=== PATIENT | female | born 1945 | race Caucasian/White ===

== ENCOUNTER → 2016-09-30 | Outpatient (CLI) | payer OTHER | LOC: FIMAGING 07:55 | PROVIDERS: ATTEND Internal Medicine | DX: Z12.31 Encounter for screening mammogram for malignant neoplasm of breast (principal); Z86.000 Personal history of in-situ neoplasm of breast | CPT/HCPCS: G0202 ==

== ENCOUNTER → 2017-10-06 | Outpatient (CLI) | payer OTHER | LOC: FIMAGING 10:25 | PROVIDERS: ATTEND Internal Medicine | DX: Z12.31 Encounter for screening mammogram for malignant neoplasm of breast (principal) ==

== ENCOUNTER 2018-02-20 12:25 | Emergency (ER) | payer OTHER ==
[2018-02-20] MEDS ORDERED: NS 1,000 ML IV ONE ×2 (12:40)
--- NOTE | 2018-02-20 12:40 | EDPHY ---
H & P Stated Complaint: irregular hr post colonostomy Time Seen by Provider: 02/20/18 12:40 HPI/ROS: HPI CHIEF COMPLAINT: Irregular heartbeat after colonoscopy. Sent in by GI physician. HISTORY OF PRESENT ILLNESS: 72-year-old female, presents emergency room after she had a colonoscopy the colonoscopy 1st around 11:00 a.m. This morning. It is now 12 30 in the afternoon. She presents emergency room stating that she was sent here by Dr. Villeda due to irregular heartbeat. She presents emergency room states she feels fine she denies chest pain or shortness of breath. Denies palpitations, she is unsure what the irregular heartbeat was during her colonoscopy. She states she had uneventful prep without any vomiting. She did have diarrhea. States she thinks she had uneventful colonoscopy. Past Medical History: Denies significant medical history Past Surgical History: Denies significant surgical history Social History: Denies drugs alcohol tobacco. Family History: Noncontributory ROS REVIEW OF SYSTEMS: 10 Systems were reviewed and negative with the exception of the elements mentioned in the history of present illness. Exam Constitutional appears well nontoxic no acute distress triage nursing summary reviewed, vital signs reviewed, awake/alert. Eyes normal conjunctivae and sclera, EOMI, PERRLA. HENT normal inspection, atraumatic, moist mucus membranes, no epistaxis, neck supple/ no meningismus, no raccoon eyes. Respiratory clear to auscultation bilaterally, normal breath sounds, no respiratory distress, no wheezing. Cardiovascular rate normal, regular rhythm, no murmur, no edema, distal pulses normal. Gastrointestinal soft, non-tender, no rebound, no guarding, normal bowel sounds, no distension, no pulsatile mass. Genitourinary no CVA tenderness. Musculoskeletal no midline vertebral tenderness, full range of motion, no calf swelling, no tenderness of extremities, no meningismus, good pulses, neurovascularly intact. Skin pink, warm, & dry, no rash, skin atraumatic. Neurologic awake, alert and oriented x 3, AAOx3, moves all 4 extremities equally, motor intact, sensory intact, CN II-XII intact, normal cerebellar, normal vision, normal speech. Psychiatric normal mood/affect. Heme/Lymph/Immune no lymphadenopathy. Differential Diagnosis: Differential diagnosis includes but is not limited to: ACS, atypical chest pain, pneumothorax, pneumonia, pulmonary embolism, aortic dissection, congestive heart failure, tumor, musculoskeletal pain, esophageal pain, GERD, peptic ulcer disease, pancreatitis Medical Decision Making: Plan for this patient IV establishment IV fluid bolus basic electrolytes, magnesium, will contact GI to see what cardiac arrhythmia they were concerned about. EKG, troponin. Re-evaluate. Re-evaluation: EKG interpretation by me on record in [employer] system. Impression time of EKG 1248 sinus rhythm rate of 58, ventricular bigeminy present. Otherwise no signs of acute ischemia. 1400: Spoke with Dr. Villeda. States that on the monitor the patient had what appeared to be a"double cardiac beat"and then a pause. Patient was asymptomatic blood present in the emergency room for evaluation. He did not visualize any V-tach or VFib. No prolonged pause. I spoke with Dr. Molina, cardiology. Reviewed the case in detail. EKG showed bigeminy without any acute ischemia. He would like the patient follow up outpatient with Cardiology Clinic. He has taken her contact information and will schedule follow-up appointment. The patient is resting comfortably here in the emergency room denies chest pain or shortness of breath. Vital signs are stable. EKG shows bigeminy with out acute ischemia. Electrolytes are appropriate. Patient feels comfortable going home. I discussed the details with her. And return precautions She understands return emergency develops syncope, vomiting, chest pain, shortness of breath. She is comfortable this plan. 2nd troponin negative. Patient feels comfortable going home. Is eager for discharge. Return precautions discussed Follow up with Cardiology Source: Patient - Personal History Current Tetanus Diphtheria and Acellular Pertussis (TDAP): Yes - Medical/Surgical History Hx Asthma: No Hx Chronic Respiratory Disease: No Hx Diabetes: No Hx Cardiac Disease: No Hx Renal Disease: No Hx Cirrhosis: No Hx Alcoholism: No Hx HIV/AIDS: No Hx Splenectomy or Spleen Trauma: No Other PMH: ra - Social History Smoking Status: Never smoked Constitutional: Initial Vital Signs Temperature (C) 36.4 C 02/20/18 12:31 Heart Rate 61 02/20/18 12:31 Respiratory Rate 18 02/20/18 12:31 Blood Pressure 122/74 H 02/20/18 12:31 O2 Sat (%) 98 02/20/18 12:31 O2 Delivery Mode Room Air Allergies/Adverse Reactions: codeine Allergy (Verified 02/20/18 12:30) erythromycin base Allergy (Verified 02/20/18 12:30) naproxen [From Naprosyn] Allergy (Verified 02/20/18 12:31) propoxyphene [From Darvon] Allergy (Verified 02/20/18 12:30) Home Medications: Medication Instructions Recorded FOLIC ACID 02/20/18 Methotrexate 02/20/18 Medical Decision Making - Diagnostics Imaging Results: Imaging Impressions Chest X-Ray 02/20/18 12:40 IMPRESSION: No evidence for acute cardiopulmonary abnormality. - Data Points Laboratory Results: Laboratory Results 02/20/18 12:54 02/20/18 12:54 02/20/18 02/20/18 02/20/18 12:56 12:54 12:54 WBC 6.01 10^3/uL 10^3/uL (3.80-9.50) RBC 4.04 10^6/uL L 10^6/uL (4.18-5.33) Hgb 12.9 g/dL g/dL (12.6-16.3) Hct 39.3 % % (38.0-47.0) MCV 97.3 fL fL (81.5-99.8) MCH 31.9 pg pg (27.9-34.1) MCHC 32.8 g/dL g/dL (32.4-36.7) RDW 13.5 % % (11.5-15.2) Plt Count 288 10^3/uL 10^3/uL (150-400) MPV 9.9 fL fL (8.7-11.7) Neut % (Auto) 52.9 % % (39.3-74.2) Lymph % (Auto) 32.8 % % (15.0-45.0) [place] % (Auto) 10.6 % % (4.5-13.0) Eos % (Auto) 2.7 % % (0.6-7.6) Baso % (Auto) 0.8 % % (0.3-1.7) Nucleat RBC Rel Count 0.0 % % (0.0-0.2) Absolute Neuts (auto) 3.18 10^3/uL 10^3/uL (1.70-6.50) Absolute Lymphs (auto) 1.97 10^3/uL 10^3/uL (1.00-3.00) Absolute Monos (auto) 0.64 10^3/uL 10^3/uL (0.30-0.80) Absolute Eos (auto) 0.16 10^3/uL 10^3/uL (0.03-0.40) Absolute Basos (auto) 0.05 10^3/uL 10^3/uL (0.02-0.10) Absolute Nucleated RBC 0.00 10^3/uL 10^3/uL (0-0.01) Immature Gran % 0.2 % % (0.0-1.1) Immature Gran # 0.01 10^3/uL 10^3/uL (0.00-0.10) Sodium 141 mEq/L mEq/L (135-145) Potassium 4.2 mEq/L mEq/L (3.3-5.0) Chloride 108 mEq/L mEq/L (97-110) Carbon Dioxide 23 mEq/l mEq/l (22-31) Anion Gap 10 mEq/L mEq/L (6-14) BUN 12 mg/dL mg/dL (7-23) Creatinine 0.8 mg/dL mg/dL (0.6-1.0) Estimated GFR > 60 Glucose 94 mg/dL mg/dL (70-100) Calcium 9.4 mg/dL mg/dL (8.5-10.4) Magnesium 2.0 mg/dL mg/dL (1.6-2.3) Total Bilirubin 0.6 mg/dL mg/dL (0.1-1.4) Conjugated Bilirubin 0.2 mg/dL mg/dL (0.0-0.5) Unconjugated Bilirubin 0.4 mg/dL mg/dL (0.0-1.1) AST 29 IU/L IU/L (14-46) ALT 38 IU/L IU/L (9-52) Alkaline Phosphatase 64 IU/L IU/L (38-126) Creatine Kinase 57 IU/L IU/L (0-156) CK-MB (CK-2) Fraction 0.98 ng/mL ng/mL (0.00-4.55) POC Troponin I 0.00 ng/mL ng/mL (0.00-0.08) NT-Pro-B Natriuret Pep 147 pg/mL H pg/mL (0-125) Total Protein 6.5 g/dL g/dL (6.3-8.2) Albumin 3.9 g/dL g/dL (3.5-5.0) Medications Given: Discontinued Medications Sodium Chloride (Ns) 1,000 mls @ 0 mls/hr IV EDNOW ONE; Wide Open PRN Reason: Protocol Stop: 02/20/18 12:41 Last Admin: 02/20/18 12:55 Dose: 1,000 mls Sodium Chloride (Ns) 1,000 mls @ 0 mls/hr IV ONCE ONE PRN Reason: Wide Open Stop: 02/20/18 12:41 Last Admin: 02/20/18 12:56 Dose: 1,000 mls Point of Care Test Results: Chemistry 02/20/18 12:56 POC Troponin I 0.00 ng/mL ng/mL (0.00-0.08) Departure - Departure Disposition: Home, Routine, Self-Care Clinical Impression: Bigeminal rhythm Condition: Good Instructions: Heart Palpitations (ED) Additional Instructions: 1. Follow up with Cardiology 2. Return emergency room if he develops chest pain, shortness of breath, passing out. Referrals: Wesley Villeda MD [Primary Care Provider] - As per Instructions Jose Molina MD [Medical Doctor] - As per Instructions
[2018-02-20 13:23] LABS: PLATELET COUNT 288 10^3/uL (150-400)
[2018-02-20 13:35] LABS: CREATINE KINASE 57 IU/L (0-156)
[2018-02-20 16:20] VITALS: BP 122/72
--- NOTE | 2018-02-21 09:03 | CPEKG ---
Test Reason : OPEN Blood Pressure : / mmHG Vent. Rate : 058 BPM Atrial Rate : 000 BPM P-R Int : 127 ms QRS Dur : 081 ms QT Int : 457 ms P-R-T Axes : 078 070 066 degrees QTc Int : 449 ms Sinus rhythm Ventricular bigeminy Confirmed by Vinayak Sheldon ([id number]) on 02/21/2018 9:02:49 AM Referred By: Confirmed By:Vinayak Sheldon
--- NOTE | 2018-02-22 06:46 | CPEKG ---
Test Reason : OPEN Blood Pressure : / mmHG Vent. Rate : 080 BPM Atrial Rate : 033 BPM P-R Int : 125 ms QRS Dur : 072 ms QT Int : 395 ms P-R-T Axes : 071 059 069 degrees QTc Int : 456 ms Sinus rhythm Ventricular bigeminy Confirmed by Jhon Rebollar ([id number]) on 02/22/2018 6:45:44 AM Referred By: Confirmed By:Jhon Rebollar
== END 2018-02-20 16:20 | disposition home or self-care (01) ==
DX: R00.8 Other abnormalities of heart beat (principal); Z98.890 Other specified postprocedural states
CPT/HCPCS: 84484-PO

== ENCOUNTER 2018-02-28 15:17 | Emergency (ER) | payer OTHER ==
--- NOTE | 2018-02-28 16:04 | EDPHY ---
H & P Stated Complaint: Left shoulder pain Time Seen by Provider: 02/28/18 15:49 HPI/ROS: CHIEF COMPLAINT: Left shoulder pain HISTORY OF PRESENT ILLNESS: 72-year-old female presents with left shoulder pain. At 1:00 p.m. today, she was in a movie theater when she had sharp and stabbing left anterior shoulder pain. The pain lasts approximately 1 sec and is sharp and stabbing. Episodes occur every few minutes. No associated symptoms and no alleviating or aggravating factors. No exertional pain. Seen in this emergency department recently for PVCs after colonoscopy. No PVCs in the past several days. No prior history of cardiopulmonary disease. REVIEW OF SYSTEMS: complete 10 point ROS reviewed and is negative except for the noted elements in the HPI Source: Patient - Personal History Current Tetanus/Diphtheria Vaccine: Yes - Medical/Surgical History Hx Asthma: No Hx Chronic Respiratory Disease: No Hx Diabetes: No Hx Cardiac Disease: No Hx Renal Disease: No Hx Cirrhosis: No Hx Alcoholism: No Hx HIV/AIDS: No Hx Splenectomy or Spleen Trauma: No Other PMH: RA, - Social History Smoking Status: Never smoked Alcohol Use: Sober Additional Social History: - Physical Exam Exam: General Appearance: Alert, pleasant Eyes: Pupils equal and round, no conjunctival pallor or injection ENT, Mouth: Mucous membranes moist Neck: Normal inspection, no tenderness, range of motion without pain Chest wall: Normal inspection, no tenderness, area of pain is just above the left lateral clavicle Respiratory: Lungs are clear to auscultation Cardiovascular: Regular rate and rhythm Gastrointestinal: Abdomen is soft and nontender Neurological: A&O, nonfocal, normal gait Skin: Warm and dry, no rash Extremities: normal inspection, no swelling or tenderness Vascular: 2+ radial pulses Psychiatric: Mood and affect normal Constitutional: Initial Vital Signs Temperature (C) 36.6 C 02/28/18 15:23 Heart Rate 69 02/28/18 15:23 Respiratory Rate 18 02/28/18 15:23 Blood Pressure 159/88 H 02/28/18 15:23 O2 Sat (%) 96 02/28/18 15:23 O2 Delivery Mode Room Air Allergies/Adverse Reactions: codeine Allergy (Verified 02/28/18 15:26) erythromycin base Allergy (Verified 02/28/18 15:26) naproxen [From Naprosyn] Allergy (Verified 02/28/18 15:26) propoxyphene [From Darvon] Allergy (Verified 02/28/18 15:26) Home Medications: Medication Instructions Recorded FOLIC ACID 02/20/18 Methotrexate 02/20/18 Medical Decision Making - Diagnostics EKG Interpretation: EKG interpreted by me reveals normal sinus rhythm, rate 57, no ST or T segment changes. Interpretation: Normal EKG Imaging Results: Imaging Impressions Chest X-Ray 02/28/18 15:59 Impression: Chest negative for acute abnormality. Imaging: I viewed and interpreted images myself ED Course/Re-evaluation: This patient presents with sharp and stabbing left shoulder pain. Stat EKG reveals no evidence of ischemia or dysrhythmia. Troponin is normal. Clinically , I do not suspect acute coronary syndrome in this patient, without known risk factors and atypical pain. Likely musculoskeletal pain. Safe and stable for discharge home. Ibuprofen instructions given. - Data Points Laboratory Results: Laboratory Results 02/28/18 15:43 02/28/18 15:43 02/28/18 02/28/18 02/28/18 16:10 15:43 15:43 WBC 8.12 10^3/uL 10^3/uL (3.80-9.50) RBC 4.09 10^6/uL L 10^6/uL (4.18-5.33) Hgb 13.2 g/dL g/dL (12.6-16.3) Hct 39.1 % % (38.0-47.0) MCV 95.6 fL fL (81.5-99.8) MCH 32.3 pg pg (27.9-34.1) MCHC 33.8 g/dL g/dL (32.4-36.7) RDW 13.8 % % (11.5-15.2) Plt Count 313 10^3/uL 10^3/uL (150-400) MPV 10.1 fL fL (8.7-11.7) Neut % (Auto) 52.5 % % (39.3-74.2) Lymph % (Auto) 33.4 % % (15.0-45.0) [place] % (Auto) 9.5 % % (4.5-13.0) Eos % (Auto) 3.8 % % (0.6-7.6) Baso % (Auto) 0.7 % % (0.3-1.7) Nucleat RBC Rel Count 0.0 % % (0.0-0.2) Absolute Neuts (auto) 4.26 10^3/uL 10^3/uL (1.70-6.50) Absolute Lymphs (auto) 2.71 10^3/uL 10^3/uL (1.00-3.00) Absolute Monos (auto) 0.77 10^3/uL 10^3/uL (0.30-0.80) Absolute Eos (auto) 0.31 10^3/uL 10^3/uL (0.03-0.40) Absolute Basos (auto) 0.06 10^3/uL 10^3/uL (0.02-0.10) Absolute Nucleated RBC 0.00 10^3/uL 10^3/uL (0-0.01) Immature Gran % 0.1 % % (0.0-1.1) Immature Gran # 0.01 10^3/uL 10^3/uL (0.00-0.10) Sodium 139 mEq/L mEq/L (135-145) Potassium 4.1 mEq/L mEq/L (3.3-5.0) Chloride 103 mEq/L mEq/L (97-110) Carbon Dioxide 27 mEq/l mEq/l (22-31) Anion Gap 9 mEq/L mEq/L (6-14) BUN 20 mg/dL mg/dL (7-23) Creatinine 0.8 mg/dL mg/dL (0.6-1.0) Estimated GFR > 60 Glucose 122 mg/dL H mg/dL (70-100) Calcium 10.2 mg/dL mg/dL (8.5-10.4) POC Troponin I 0.00 ng/mL ng/mL (0.00-0.08) NT-Pro-B Natriuret Pep 90 pg/mL pg/mL (0-125) Point of Care Test Results: Chemistry 02/28/18 16:10 POC Troponin I 0.00 ng/mL ng/mL (0.00-0.08) Departure - Departure Disposition: Home, Routine, Self-Care Clinical Impression: Shoulder pain, left Qualifiers: Chronicity: acute Qualified Code(s): M25.512 - Pain in left shoulder Condition: Good Instructions: Thoracic Pain (ED) Additional Instructions: Ibuprofen 600 mg 3 times daily while the pain persists. Referrals: Jenny Davis MD [Primary Care Provider] - As per Instructions
[2018-02-28 16:05] LABS: PLATELET COUNT 313 10^3/uL (150-400)
--- NOTE | 2018-02-28 16:19 | CPEKG ---
Test Reason : OPEN Blood Pressure : / mmHG Vent. Rate : 057 BPM Atrial Rate : 057 BPM P-R Int : 124 ms QRS Dur : 077 ms QT Int : 432 ms P-R-T Axes : 068 045 060 degrees QTc Int : 421 ms Sinus rhythm Confirmed by Lady Corado ([id number]) on 02/28/2018 4:18:56 PM Referred By: Confirmed By:Lady Corado
[2018-02-28 17:36] VITALS: BP 125/80
== END 2018-02-28 17:36 | disposition home or self-care (01) ==
DX: M25.512 Pain in left shoulder (principal)
CPT/HCPCS: 84484-PO

== ENCOUNTER → 2018-03-02 | Outpatient (CLI) | payer OTHER | LOC: BHFA 15:30 | PROVIDERS: ATTEND Internal Medicine | DX: I49.3 Ventricular premature depolarization (principal) ==

== ENCOUNTER → 2018-03-10 | Outpatient (CLI) | payer OTHER | LOC: BHFA 13:00 | PROVIDERS: ATTEND Internal Medicine Interventional Cardiology | DX: I49.9 Cardiac arrhythmia, unspecified (principal) ==

== ENCOUNTER → 2018-04-19 | Outpatient (CLI) | payer OTHER | LOC: BHFA 11:00 | PROVIDERS: ATTEND Internal Medicine Cardiovascular Disease | DX: R07.9 Chest pain, unspecified (principal); I49.3 Ventricular premature depolarization ==